=== PATIENT | female | born 1935 | race Caucasian/White ===

== ENCOUNTER 2017-09-24 10:36 | Emergency (ER) | payer OTHER ==
[~2017-09-24] VITALS: Ht 152.4 cm; Wt 59.9 kg
[2017-09-24 13:16] LABS: ABSOLUTE BASOPHIL COUNT 0 /CUMM (0.0-0.2); ABSOLUTE EOSINOPHIL COUNT 0 /CUMM (0.0-0.7); ABSOLUTE LYMPH COUNT 0.7 /CUMM (1.2-3.4); ABSOLUTE MONOCYTE COUNT 0.4 /CUMM (0.10-0.60); BASOPHIL % 0.3 % (0.0-2.0); EOSINOPHIL % 0.1 % (0-5); GRANULOCYTE % 81.4 % (42.2-75.2); MEAN CORPUSCULAR HGB CONC 33.9 G/DL (33.0-37.0); MEAN CORPUSCULAR VOLUME 88.4 FL (81.0-99.0); MEAN PLATELET VOLUME 8.8 FL (7.4-10.4); PLATELET COUNT 195 /CUMM (130-400); RBC DISTRIBUTION WIDTH 13.9 % (11.5-14.5); RED BLOOD CELL CT 3.96 /CUMM (4.20-5.40); WHITE BLOOD CELL COUNT 6.2 /CUMM (4.8-10.8)
--- NOTE | 2017-09-24 13:53 | RADIOLOGY REPORT ---
EXAMINATION: XR CHEST CLINICAL INFORMATION: Chest pain per COMPARISON: None TECHNIQUE: 2 views of the chest were obtained. FINDINGS: Both lungs are well-expanded and clear of acute process. The heart size and pulmonary vascularity is normal. No gross bony abnormality seen. IMPRESSION: Unremarkable chest examination.
--- NOTE | 2017-09-24 14:02 | ED CARDIAC/CP/PALPITATIONS ---
History of Present Illness General Chief Complaint: Psychiatric Related Complaint Stated Complaint: CHINO OCONNELL (CRISIS) PT STATES "I'M A NERVOUS WRE Source: patient Exam Limitations: dementia Vital Signs & Intake/Output Vital Signs & Intake/Output Vital Signs Date Time Temp Pulse Resp B/P B/P Pulse O2 O2 Flow FiO2 Mean Ox Delivery Rate 09/24 1413 98.2 86 19 130/67 97 Room Air 09/24 1120 97.9 100 18 128/74 96 Room Air Allergies Coded Allergies: Penicillins (Mild, RASH 09/24/17) Triage Note: PT STATES THAT SHE CALLED THE HOSPITAL TO TALK WITH SOMEONE DUE TO SHE IS A NERVOUS WRECK, STATES THAT SHE 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 PT DENIES SI AND STATES " MY PENTECOSTAL WOULD NEVER ALLOW THAT" DENIES HI. PT STATES THAT SHE JUST NEEDS TOTALK TO SOMEONE TO GUIDE HER. Triage Nurses Notes Reviewed? yes Onset: Evening Duration: hour(s):, constant, continues in ED Timing: recent history Quality/Severity: moderate Location: central Radiation: no radiation Activities at Onset: none Prior Chest Pain/Card Workup: echocardiography, heart attack, stress test Modifying Factors: Improves With: rest. Aspirin Today: 325 mg x 1, provided at home LMP (ages 10-50): post menopausal : No Patient currently breastfeeds: No HPI: 12 hours prior to admission patient complains of constant substernal chest tightness nonradiating associated with anxiety especially with no one in her home. She denies fever chills nausea vomiting diarrhea abdominal pain shortness of breath dysuria headache rash bleeding. Past History Travel History Traveled to [place] past 21 day No Medical History Any Pertinent Medical History? see below for history Neurological: NONE EENT: NONE Cardiovascular: CAD, hypertension, hyperlipidemia, myocardial infarction Musculoskeletal: NONE Psychiatric: NONE Endocrine: hypothyroidism Cancer(s): breast cancer Surgical History Surgical History: non-contributory Psychosocial History What is your primary language Angolan Tobacco Use: Never used ETOH Use: denies use Illicit Drug Use: denies illicit drug use Family History Hx Contributory? No Review of Systems Review of Systems Constitutional: Reports: no symptoms. EENTM: Reports: no symptoms. Respiratory: Reports: no symptoms. Cardiovascular: Reports: see HPI, chest pain. GI: Reports: no symptoms. Genitourinary: Reports: no symptoms. Musculoskeletal: Reports: no symptoms. Skin: Reports: no symptoms. Neurological/Psychological: Reports: see HPI, anxiety. Hematologic/Endocrine: Reports: no symptoms. Immunologic/Allergic: Reports: no symptoms. All Other Systems: Reviewed and Negative Physical Exam Physical Exam General Appearance: well developed/nourished, alert, awake, anxious, comfortable Head: atraumatic, normal appearance Eyes: Bilateral: normal appearance, PERRL, EOMI. Ears, Nose, Throat: normal pharynx, normal ENT inspection, hearing grossly normal Neck: normal inspection, supple, full range of motion, no midline tenderness Respiratory: normal breath sounds, chest non-tender, no respiratory distress, quiet respiration, lungs clear Cardiovascular: regular rate/rhythm, normal peripheral pulses, norml femoral pulses equa Peripheral Pulses: 4+ carotid (R), 4+ carotid (L) Gastrointestinal: normal bowel sounds, soft, non-tender, no organomegaly Back: normal inspection, normal range of motion Extremities: normal inspection, normal capillary refill, normal range of motion, no edema Neurologic/Psych: no motor/sensory deficits, alert, normal gait, 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 Skin: intact, normal color, cyanosis Lymphatic: no anterior cervical ankush Core Measures ACS in differential dx? Yes No ASA d/t taken at home CVA/TIA Diagnosis No Sepsis Present: No Sepsis Focused Exam Completed? No Progress Differential Diagnosis: atrial fibrillation, costochondritis, hyperkalemia, hyperventilation, pneumonia Plan of Care: Orders Procedure Date/time Status TROPONIN LEVEL 09/24 1248 Complete MAGNESIUM 09/24 1248 Complete COMPREHENSIVE METABOLIC PANEL 09/24 1248 Complete CBC WITHOUT DIFFERENTIAL 09/24 1248 Complete EKG 09/24 1224 Active Laboratory Tests 09/24/17 1306: Anion Gap 12, Estimated GFR > 60, BUN/Creatinine Ratio 17.8, Glucose 131 H, Calcium 10.4 H, Magnesium 1.7, Total Bilirubin 0.4, AST 22, ALT 24, Alkaline Phosphatase 53, Troponin I < 0.01, Total Protein 6.7, Albumin 4.4, Globulin 2.3, Albumin/Globulin Ratio 1.9, CBC w Diff NO MAN DIFF REQ, RBC 3.96 L, MCV 88.4, MCH 30.0, MCHC 33.9, RDW 13.9, MPV 8.8, Gran % 81.4 H, Lymphocytes % 12.1 L, Monocytes % 6.1, Eosinophils % 0.1, Basophils % 0.3, Absolute Granulocytes 5.0, Absolute Lymphocytes 0.7 L, Absolute Monocytes 0.4, Absolute Eosinophils 0, Absolute Basophils 0 Diagnostic Imaging: Viewed by Me: Radiology Read. Discussed w/RAD: Radiology Read. CXR Impression: no acute abnormality, no infiltrates, normal size heart, normal mediastinum Initial ED EKG: normal axis, normal intervals, normal p-waves, normal QRS complex, normal sinus rhythm, no ST T wave changes Rhythm Strip: normal sinus rhythm Departure Departure Time of Disposition: 1403 Disposition: HOME OR SELF CARE Condition: Stable Clinical Impression Primary Impression: Chest pain syndrome Secondary Impressions: Anxiety Referrals: Brandi Spain (PCP/Family) Departure Forms: Customer Survey General Discharge Information Critical Care Note Critical Care Note Critical Care Time: non-applicable
[2017-09-24 14:13] VITALS: BP 130/67
== END 2017-09-24 14:15 ==
LOC: ERH 10:36
PROVIDERS: Emergency Medicine
DX: F41.9 Anxiety disorder, unspecified (principal); R07.89 Other chest pain
CPT/HCPCS: 71046